=== PATIENT | male | born 1990 | race Caucasian/White ===

== ENCOUNTER 2016-12-11 14:27 | Emergency (ER) | payer BC ==
[~2016-12-11] VITALS: Ht 170.2 cm; Wt 67.0 kg
[2016-12-11 16:52] LABS: MCH 28.9 PG (29.0-34.0); MCHC 35.7 G/DL (30.0-36.0); MCV 80.9 FL (86-99); MEAN PLAT.VOLUME 9.9 uM^3 (9.0-12.4); PLATELET COUNT 305 K/uL (156-360); RBC DIS.WIDTH-CV 12.1 % (11.8-14.6); RBC DIS.WIDTH-SD 35.2 % (39-53); RED BLOOD COUNT 5.81 M/uL (4.00-5.50)
[2016-12-11 17:02] LABS: CHLORIDE 105 mEq/L (99-109); POTASSIUM 3.6 mEq/L (3.7-5.4); SODIUM 141 mEq/L (136-147)
[2016-12-11 17:04] LABS: GLUCOSE 90 mg/dL (70-99)
[2016-12-11 17:05] LABS: ANION GAP 13 MEQ/L (2-14)
[2016-12-11 17:08] LABS: GFR ESTIMATE (CALCULATED) > 59 mL/min/
[2016-12-11 17:09] LABS: UREA NITROGEN (BUN) 18 mg/dL (9-23)
[2016-12-11 19:04] LABS: TROP-I INTERPRETATION NEGATIVE; TROPONIN-I < 0.01 ng/mL (0.0-0.30)
[2016-12-11 19:19] VITALS: BP 139/83
== END 2016-12-11 19:21 | disposition home or self-care (01) ==
LOC: EME 14:27
DX: R55 Syncope and collapse (principal); F17.200 Nicotine dependence, unspecified, uncomplicated
CPT/HCPCS: 71020; 80048; 84484; 85027; 93005; 99281; 99284; J7030